=== PATIENT | male | born 1990 | race Caucasian/White ===

== ENCOUNTER 2025-06-09 08:23 | Emergency (ER) | payer MEDICAID ==
[~2025-06-09] VITALS: Ht 170.2 cm; Wt 69.0 kg
[2025-06-09 08:32] VITALS: TEMP 36.7; O2SAT 100
[2025-06-09 09:04] LABS: BASOPHILS % 0.4 % (0.0-2.0); EOSINOPHILS % 1.0 % (0.0-5.0); HEMATOCRIT. 49.2 % (42.0-52.0); HEMOGLOBIN. 15.7 g/dL (14.0-18.0); LYMPHOCYTES % 11.7 % (20.0-50.0); MEAN PLATELET VOLUME 8.2 fl (7.4-10.4); MONOCYTES % 6.9 % (2.0-8.0); NEUTROPHILS % 80.0 % (40.0-76.0); PLATELET 269 x1000/uL (130-400); RED BLOOD CELL COUNT 5.67 mill/uL (4.7-6.1); RED CELL DISTRIBUTION WIDTH 13.5 % (11.6-14.6)
[2025-06-09] MEDS: ONDANSETRON 4MG ODT PO ONE (09:15)
[2025-06-09] MEDS: HYDROCODONE/ACETAMINOPHEN 5/325MG TABLET PO ONE (09:15)
[2025-06-09] MEDS: PANTOPRAZOLE 40MG DR TABLET PO ONE (09:15)
[2025-06-09 09:18] LABS: CLARITY URINE CLEAR (CLEAR); COLOR URINE YELLOW (YELLOW); GLUCOSE URINE NEGATIVE (NEGATIVE); KETONES URINE TRACE (NEGATIVE); LEUKOCYTE ESTERASE URINE NEGATIVE (NEGATIVE); NITRITE URINE NEGATIVE (NEGATIVE); OCCULT BLOOD URINE NEGATIVE (NEGATIVE); PH URINE 6.5 (4.5-8.0); PROTEIN URINE TRACE (NEGATIVE); SPECIFIC GRAVITY URINE 1.020 (1.005-1.030); UROBILINOGEN URINE 1.0 E.U./dL (0.2-1.0)
[2025-06-09 09:25] VITALS: O2SAT 97
[2025-06-09 09:25] LABS: CREATININE 1.0 mg/dL (0.6-1.3); UREA NITROGEN BLOOD 7 mg/dL (9-23)
[2025-06-09 09:27] LABS: ASPARTATE AMINOTRANSFERASE 27 IU/L (<34); BILIRUBIN DIRECT 0.3 mg/dL (<=3.0)
[2025-06-09 09:28] LABS: BILIRUBIN TOTAL 1.0 mg/dL (0.1-1.0); PROTEIN TOTAL 7.3 g/dL (6.0-8.3)
[2025-06-09 09:42] LABS: *AMPHETAMINES SCREEN URINE NEGATIVE (NEGATIVE); *BENZODIAZEPINES SCREEN URINE NEGATIVE (NEGATIVE)
[2025-06-09 09:43] LABS: *BARBITURATES SCREEN URINE NEGATIVE (NEGATIVE); *COCAINE SCREEN URINE NEGATIVE (NEGATIVE); CANNABINOID URINE SCREEN PRESUMPTIVE POSITIVE (NEGATIVE); ECSTASY MDMA SCREEN URINE NEGATIVE (NEGATIVE); METHADONE URINE SCREEN NEGATIVE (NEGATIVE); OPIATES URINE SCREEN NEGATIVE (NEGATIVE); PHENCYCLIDINE URINE SCREEN NEGATIVE (NEGATIVE)
[2025-06-09] MEDS: PANTOPRAZOLE SODIUM 40 MG/VIAL IV ONE (09:43)
[2025-06-09] MEDS: ONDANSETRON HCL 4MG/2ML INJ IV ONE (09:43)
[2025-06-09] MEDS: SODIUM CHLORIDE 0.9% 1,000 ML IV ONE (09:43)
[2025-06-09 10:20] LABS: MUCUS URINE TRACE /lpf (NONE/TRACE)
[2025-06-09 10:21] LABS: BACTERIA URINE TRACE; SQUAMOUS EPITHELIAL CELL URINE NONE SEEN /lpf (RARE/1+)
[2025-06-09 10:22] LABS: RBC URINE NONE SEEN /hpf (0-2)
[2025-06-09] MEDS: DIPHENHYDRAMINE 50MG/ML VIAL IV ONE (10:29)
[2025-06-09] MEDS: HALOPERIDOL LACTATE 5MG/ML VIAL IM ONE (10:29)
[2025-06-09] MEDS ORDERED: LACT1CAP78 MT (12:15)
[2025-06-09] MEDS ORDERED: OMEP20TA23 MT (12:15)
[2025-06-09 13:01] VITALS: BP 145/84; PULSE 60; RESP 16
[2025-06-09] MEDS: MORPHINE SULFATE 4 MG/ML INJ (FOR IV/IM USE) IV ONE (13:01)
[2025-06-09] MEDS ORDERED: FAMO-135 MT (13:38)
[2025-06-14] MEDS ORDERED: METR-167 PO (13:06)
[2025-06-14] MEDS ORDERED: METO5TAB86 MT (13:06)
[2025-06-14] MEDS ORDERED: LEVO750T68 MT (13:06)
== END 2025-06-09 14:03 | disposition home or self-care (01) ==
LOC: ER 08:45
DX: K29.80 Duodenitis without bleeding (principal); K52.9 Noninfective gastroenteritis and colitis, unspecified; R11.16 Cannabis hyperemesis syndrome; J45.909 Unspecified asthma, uncomplicated; F10.90 Alcohol use, unspecified, uncomplicated; F12.90 Cannabis use, unspecified, uncomplicated; Z79.899 Other long term (current) drug therapy; Z87.19 Personal history of other diseases of the digestive system; Z87.891 Personal history of nicotine dependence; Z88.0 Allergy status to penicillin; Y90.9 Presence of alcohol in blood, level not specified
CPT/HCPCS: 80076; 80305; 80048; 81003; 80320; 83690; 85025; 36415; 74176; 96365; 96372; 96375; 99285; Q0162; J1200; J1630; J2405; J2470; J2270; J7030; G0480